=== PATIENT | female | born 1965 | race Hispanic/Latino ===

== ENCOUNTER 2017-08-19 12:40 | Day surgery (SDC) | payer OTHER ==
[2017-08-18 11:18] VITALS: BMI 27.7
[~2017-08-19 12:40] MED LIST: Cyclopentolate 1% Opth Drop 2 ML BOT FS SCH; Fluorouracil 100 MG, EPINEPHrine 0.3 MG, Dextrose 50% 3 ML in Ophthalmic Irrigation Sol... IVPB SCH; Phenylephrine HCl 2.5% Ophth Soln 5 ML BOT FS SCH
[2017-08-19] MEDS ORDERED: Cyclopentolate 1% Opth Drop 2 ML BOT ONE (13:08)
[2017-08-19] MEDS ORDERED: Phenylephrine HCl 2.5% Ophth Soln 5 ML BOT ONE (13:08)
[2017-08-19] MEDS ORDERED: Lidocaine 2% PF 5 ML VIAL ONE (13:27)
[2017-08-19] MEDS ORDERED: Midazolam HCl 2 mg/2 ml Vial ONE (13:27)
[2017-08-19] MEDS ORDERED: Diprivan 20 ML ONE (13:27)
[2017-08-19] MEDS ORDERED: Fentanyl 100 MCG/2 ML VIAL ONE (13:27)
[2017-08-19] MEDS ORDERED: Lidocaine 1% PF 5 ML VIAL ONE (15:46)
[2017-08-19] MEDS ORDERED: Propofol 200 MG/20 ML VIAL ONE (15:46)
--- NOTE | 2017-08-19 21:21 | OP ---
DATE OF PROCEDURE: 08/19/2017 PREOPERATIVE DIAGNOSIS: Tractional retinal detachment, left eye. POSTOPERATIVE DIAGNOSIS: Tractional retinal detachment, left eye. PROCEDURES PERFORMED: Pars plana vitrectomy, tractional retinal detachment repair, left eye. SURGEON: Dr. Venkata Gonzalez. ANESTHESIA: Local with monitored anesthesia care. PROCEDURE IN DETAIL: The patient was identified in the preoperative holding area. Appropriate infor med consent for the planned surgical procedure on the left eye had been obtained. The patient was tr ansported to the operative suite where appropriate cardiopulmonary monitoring was established. Local anesthesia was obtained using retrobulbar block. The trocars were placed supratemporally, inferotem porally, and supranasally. Infusion line was placed inferotemporally. A 20-gauge sclerotomy was cre ated superiorly and silicone oil was removed from the eye. Sclerotomy was sutured closed with 7-0 Vi cryl suture. Light pipe and vitreous cutter were inserted into the eye. Residual vitreous was remov ed, attention was turned to the dense band on the retina. This was elevated using a combinatio n of end-gripping forceps and membrane pick until the epiretinal membrane was elevated. A hole was n oted superiorly and centrally. A laser was placed around the superior hole. A 15% perfluoropropane gas was infused into the eye. Trocars were removed and eye was noted to retain pressure well. Subco njunctival, Kenalog, retrobulbar and Ancef was placed. Eye was patched and shielded. The patient wa s advised to position right or left side down, and follow up in the morning with Dr. Gonzalez.
== END 2017-08-19 16:10 | disposition home or self-care (01) ==
LOC: SDC 12:40
PROVIDERS: ATTEND Ophthalmology Retina Specialist
PROC: 08B53ZZ Excision of Left Vitreous, Percutaneous Approach (ICD-10-PCS; principal; 2017-08-19)
PROC: 08QF3ZZ Repair Left Retina, Percutaneous Approach (ICD-10-PCS; principal; 2017-08-19)
DX: H33.42 Traction detachment of retina, left eye (principal); Z79.84 Long term (current) use of oral hypoglycemic drugs; Z79.899 Other long term (current) drug therapy
CPT/HCPCS: 67025; C1814; J0171; J2001; J2250; J2704; J3010; J9190